=== PATIENT | male | born 1945 | race Caucasian/White ===

== ENCOUNTER 2017-10-06 13:04 | Inpatient (IN) | payer MEDICARE ==
[~2017-10-06] VITALS: Ht 165.1 cm; Wt 63.8 kg
--- NOTE | ~2017-10-06 | PR ---
[place], [place] PROGRESS NOTE NAME: VANESSA GONZALEZ UNIT #: [id number] ROOM: 314 DOCTOR: TRACI HILL MD BIRTHDATE: [birth year] DOS: 10/09/2017 SUBJECTIVE: Patient seen and spoke with the staff. Per staff, patient is doing well. Some irritability, but easily redirectable. Patient was in the day area. He reports doing okay. He said that he is taking his medication regularly and did not have any side effect from the medication. He denied any depressed mood or hopelessness. He reports good sleep and appetite. MENTAL STATUS EXAMINATION: Pleasant, cooperative, alert and oriented to day, date, month and year. Described his mood as "okay." Affect, mood congruent. Thought process goal directed. No flight of ideas, loosening of association. He denied auditory or visual hallucination. No delusion or paranoia noted. He denied suicidal ideation, intent or plan. He also denied homicidal ideation, intent or plan. PLAN: 1. Continue current medication and care. 2. Continue redirection. 3. Supportive care. 4. Final medication management and discharge plan by the regular team. TRACI HILL MD CM:PNTRANS [id number] TRACI HILL MD 10/10/17 1506 interface
--- NOTE | ~2017-10-06 | PR ---
[place], [place] PROGRESS NOTE NAME: VANESSA GONZALEZ UNIT #: [id number] ROOM: 314 DOCTOR: DAISY POWER DO BIRTHDATE: [birth year] DOS: 10/11/2017 CHIEF COMPLAINT: "Morning." SUMMARY OF VISIT: This is a 72-year-old male being interviewed in the dining area while he is eating breakfast. The patient continues to remain very confused and has a hard time forming a sentence. When asked questions, the patient tends to repeat the same question back and struggles to find what he is trying to answer. For example, when asked how he slept last night, he looked confused and repeated the question back that was being asked without actually answering the question. When the patient was asked how long he has been in the hospital, the patient responded he has been in the hospital 10,000 times. Per nursing staff, the patient slept 7 hours and woke up once in the middle of the night. Nursing also mentioned that at one point the patient stated that he was embarrassed because he feels so lost. MENTAL STATUS EXAMINATION: The patient is alert and oriented only to self. Mood is pleasant. The patient is very disjointed in his thinking and very confused. His responses to questions are vague and continued to be very disjointed. 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 PLAN: 1. Increase Exelon patch to 13.3 mg daily. 2. We will continue to engage patient in individual and sharp milieu activity with the plan to return to the least restrictive environment when psychiatrically stable. ADDENDUM Dr. Jones 10/27/17 10:48 am: Above note reviewed. Agree with observations, recommendations, and overall treatment plan. Daisy NaylorlillyDO [place], [place] PROGRESS NOTE NAME: VANESSA GONZALEZ UNIT #: [id number] ROOM: 314 DOCTOR: DAISY POWER DO BIRTHDATE: [birth year] LAN JONES MD CM:PNTRANS [id number] DAISY POWER DO 10/27/17 1053 KARISHMA BINGHAM.R
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
--- NOTE | ~2017-10-06 | DS ---
[place], [place] DISCHARGE SUMMARY NAME: VANESSA GONZALEZ UNIT #: [id number] ROOM: 314 DOCTOR: LAN JONES MD BIRTHDATE: [birth year] DOS: 10/13/2017 ADDENDUM CHIEF COMPLAINT: "Good morning, I guess I want to go back to the [place]." SUMMARY OF THE VISIT: The patient was interviewed as he was sitting at the edge of the dining area. He was sitting by himself, but engaged readily in conversation, voicing no complaints. He continues to be exceptionally confused and has a great deal of difficulty formulating his thoughts. He is, however, pleasant and cooperative and there has been no symptom suggestive of mike, hypomania or psychosis. He has not exhibited any suicidal thoughts, homicidal thoughts or any self-injurious thoughts and likewise has tolerated the current medication regimen well. MENTAL STATUS AT DISCHARGE: He is alert and oriented to person, possibly place in that he knows he is in the hospital, but I do not believe he knows he is in [place]. He is pleasant and cooperative. His speech rate and pattern is very slow and he is very deliberate in his thought process. His responses tend to be short, simple and very vague, at times inappropriate to the questions asked of him. Short-term memory continues to be problematic. DISCHARGE DIAGNOSIS AND DISPOSITION: As per the previous discharge summary. Discharge was delayed due to transportation issues as the patient is to be discharged to [facility] in [place], [place], which is approximately an hour to an hour and a half away from this facility. The patient will be discharged today as the facility itself will be providing transportation. LAN JONES MD CM:DISCHARG [id number] LAN JONES MD 10/14/17 0559 interface
--- NOTE | ~2017-10-06 | PR ---
[place], [place] PROGRESS NOTE NAME: VANESSA GONZALEZ UNIT #: [id number] ROOM: 314 DOCTOR: TRACI HILL MD BIRTHDATE: [birth year] DOS: 10/08/2017 PSYCHIATRIC PROGRESS NOTE SUBJECTIVE: The patient seen and spoke with the staff. Per staff, the patient is doing well. No behavior problems or issues except for some agitation, but he is easily redirectable. Per nursing staff, he slept well and he is compliant with his medication. The patient was pleasant and cooperative. He was in his room on his bed, taking a nap. When I woke him up, he said that he was doing okay and then fell back to sleep again. He does not seem to be in any acute distress. MENTAL STATUS EXAMINATION: Somewhat uncooperative. He was alert, went back to sleep again. He described his mood as "okay." Affect was mood congruent. He denied auditory or visual hallucination. No delusion or paranoia noted. He denied suicidal ideation, intent or plan. He also denied homicidal ideation, intent or plan. PLAN: 1. Continue current medication and care. 2. Continue redirection. 3. Supportive care. TRACI HILL MD CM:PNTRANS 033 TRACI HILL MD 10/09/17 0330 interface
--- NOTE | ~2017-10-06 | PR ---
[place], [place] PROGRESS NOTE NAME: VANESSA GONZALEZ UNIT #: [id number] ROOM: 314 DOCTOR: LAN JONES MD BIRTHDATE: [birth year] DOS: 10/10/2017 CHIEF COMPLAINT: "Yeah, I did have something over here, I think, I do not remember." SUMMARY OF THE VISIT: The patient was interviewed in the dining area. He remains very perplexed and bewildered and confused and has a hard time forming even a complete sentence. When I did ask him if he had had breakfast, he looked bewildered and stated that he had something, but could not remember what. He does not exhibit any agitation or aggression during my interview. MENTAL STATUS: He remains alert and oriented to self, unclear place, certainly not time. Mood does seem to be fairly pleasant and bright and redirectable. He is very disjointed in his thinking and fragmented. He lacks spontaneity and his responses often times are so vague and disjointed that they are inappropriate to the questions asked of him. PLAN: At the present time, will be to continue to titrate upwards Namenda and Exelon. I will bring Exelon patch from 4.6 to 9.5 mg a day and increase Namenda from 5 mg a day to 5 mg twice a day. We will engage in individual and sharp milieu activity with the plan to return to the least restrictive environment when psychiatrically stable. LAN JONES MD CM:PNTRANS [id number] LAN JONES MD 10/10/17 2237 interface
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
[2017-10-06 15:11] VITALS: BP 127/66
[2017-10-06] MEDS ORDERED: MACROBID100 M1 PO (15:26)
[2017-10-06] MEDS ORDERED: FLOMAX0.4 MG PO (15:27)
[2017-10-06 17:00] LABS: BILIRUBIN NEGATIVE (NEGATIVE); BLOOD 3+ (NEGATIVE); CLARITY SL CLOUDY (CLEAR); COLOR YELLOW (YELLOW); GLUCOSE NEGATIVE (NEGATIVE); KETONE NEGATIVE (NEGATIVE); LEUKO ESTERASE TRACE (NEGATIVE); NITRITE NEGATIVE (NEGATIVE); PH 5.5 (5.0-9.0); SPECIFIC GRAVITY 1.025 (1.005-1.030)
[2017-10-06 17:11] LABS: BACTERIA 1+; MUCOUS 2+
[2017-10-06 17:12] LABS: RBC 51-100 rbc/hpf (0-2)
[2017-10-06 17:48] VITALS: BP 127/66
[2017-10-06 20:42] VITALS: BP 133/75
[2017-10-07 07:28] LABS: BASO % 0.8 % (0.0-1.0); EOS # 0.2 10*3/uL (0.0-0.4); EOS % 5.5 % (1.0-4.0); HEMATOCRIT 45.8 % (42.0-52.0); HEMOGLOBIN 15.1 g/dl (14.0-18.0); LYMPH # 0.9 10*3/uL (1.3-4.4); LYMPH % 23.6 % (27.0-41.0); MEAN CELL VOLUME 96.2 fl (80.0-94.0); MEAN CORPUSCULAR HGB 31.7 pg (27.0-31.0); MEAN PLATELET VOLUME 10.2 fl (9.6-12.3); MONO # 0.5 10*3/uL (0.1-1.0); MONO % 12.3 % (3.0-9.0); NEUT # 2.1 10*3/uL (2.3-7.9); NEUT % 57.5 % (47.0-73.0); PLATELET COUNT AUTOMATED 204 10*3/uL (130-400); RED BLOOD COUNT 4.76 10*6/uL (4.50-5.90); RED CELL DISTRI WIDTH 12.9 % (0-14.5); WHITE BLOOD COUNT 3.7 10*3/uL (4.8-10.8)
[2017-10-07 07:56] LABS: ALBUMIN 3.6 gm/dl (3.1-4.5); BUN 10 mg/dl (7-24); CHLORIDE 106 mmol/L (98-107); POTASSIUM 3.7 mmol/L (3.5-5.1); SGOT/AST 16 IU/L (3-35); SODIUM 141 mmol/L (136-145); TOTAL PROTEIN 6.8 gm/dL (6.4-8.2)
[2017-10-07 08:08] LABS: ALKALINE PHOSPHATASE 76 U/L (45-117); CHOLESTEROL 160 mg/dL (<200); CREATININE 0.94 mg/dL (0.70-1.30); HDL CHOLESTEROL 45 mg/dl (40-60); LDL CHOLESTEROL 96 mg/dL (9-159); SGPT/ALT 15 U/L (12-78); TRIGLYCERIDES 95 mg/dl (<150); VLDL CHOLESTEROL 19 mg/dL (6-40)
[2017-10-07 08:43] VITALS: BP 135/66
[2017-10-07 09:20] LABS: VITAMIN D, 25-HYDROXY 13.1 ng/mL (30-100)
[2017-10-07 19:27] VITALS: BP 119/62
[2017-10-08 07:40] VITALS: BP 128/70
[2017-10-08 20:13] VITALS: BP 124/72
[2017-10-09 07:45] VITALS: BP 135/64
[2017-10-09 20:00] VITALS: BP 138/74
[2017-10-10 08:13] VITALS: BP 123/66
[2017-10-10 20:00] VITALS: BP 110/72
[2017-10-11 08:02] VITALS: BP 121/63
[2017-10-11 20:00] VITALS: BP 139/76
[2017-10-12 07:46] VITALS: BP 143/70
[2017-10-12] MEDS ORDERED: Vitamin D PO (10:15)
[2017-10-12] MEDS ORDERED: MIRTAZAPINE15 M2 PO (10:15)
[2017-10-12] MEDS ORDERED: EXELON13.3 MG/21 T (10:15)
[2017-10-12] MEDS ORDERED: B121000 MCG/1 IM (10:15)
[2017-10-12] MEDS ORDERED: NAMENDA-5 PO (10:15)
[2017-10-12 20:11] VITALS: BP 116/66
[2017-10-13 07:50] VITALS: BP 126/62
== END 2017-10-13 16:16 | disposition other institution (70) | DRG 56 ==
LOC: 3N 13:04
PROVIDERS: Psychiatry & Neurology Psychiatry
DX: G30.9 Alzheimer's disease, unspecified (principal); G93.41 Metabolic encephalopathy; F33.2 Major depressive disorder, recurrent severe without psychotic features; F02.80 Dementia in other diseases classified elsewhere, unspecified severity, without behavioral disturbance, psychotic disturbance, mood disturbance, and anxiety; R45.851 Suicidal ideations; N40.1 Benign prostatic hyperplasia with lower urinary tract symptoms; R33.8 Other retention of urine; Z85.46 Personal history of malignant neoplasm of prostate; Z82.49 Family history of ischemic heart disease and other diseases of the circulatory system; Z79.899 Other long term (current) drug therapy